=== PATIENT | female | born 1965 | race Caucasian/White ===

== ENCOUNTER 2017-07-04 10:27 | Outpatient (CLI) | payer OTHER ==
[2017-07-04 10:54] LABS: BASOPHILS % 0.5 (0.0-1.5); EOSINOPHILS % 2.9 % (0.0-6.8); MEAN CORPUSCULAR HEMOGLOBIN 30.7 pg (28.0-34.0); MONOCYTES % 3.7 % (0.0-11.0); NEUTROPHILS # 5.1 # k/uL (1.4-7.7)
[2017-07-04 11:37] LABS: eGFR (African) > 60; eGFR (Non-African) > 60
--- NOTE | 2017-07-04 13:13 | Diagnostic Imaging Report ---
MILENA NOLAN [facility] [address] [facility] [address] [place] [id number]. [id number] Report Submission Date: Jul 04, 2017 11:22:35 AM ENGINEERING SPECIALIST Patient Study Name: SARAHY BONILLA Date: Jul 04, 2017 10:48:06 AM ENGINEERING SPECIALIST Modality Type: CR Gender: F Description: ABDOMEN : 65 Institution: [facility] Physician: MILENA NOLAN Examination: KUB History: Abdominal discomfort Findings: 2 views obtained of the abdomen. No abnormal dilation of the large or small bowel. Air and stool throughout the large bowel. No suspicious calcifications projecting over the renal fossa or the lower pelvic region. Osseous structures are appropriate for age. Impression: No obstruction. No suspicious calcifications by plain film sensitivity. Electronically signed on Jul 04, 2017 11:22:35 AM ENGINEERING SPECIALIST by: Cuba ATKINS
== END 2017-07-04 10:30 ==
LOC: LAB 10:27
PROVIDERS: ATTEND Family Medicine
DX: R10.84 Generalized abdominal pain (principal); R53.83 Other fatigue
CPT/HCPCS: 36415; 74000; 80053; 84443; 85025

== ENCOUNTER 2017-07-07 07:44 | Outpatient (CLI) | payer OTHER ==
--- NOTE | 2017-07-07 10:50 | Diagnostic Imaging Report ---
MILENA NOLAN [facility] [address] [facility] [address] [place] [id number]. [id number] Report Submission Date: Jul 07, 2017 10:14:02 AM FLYING SHEAR OPERATOR Patient Study Name: SARAHY BONILLA Date: Jul 07, 2017 8:02:38 AM FLYING SHEAR OPERATOR Modality Type: US Gender: F Description: JUDI BAY : 65 Institution: [facility] Physician: MILENA NOLAN Examination: Ultrasound abdomen History: Abdominal discomfort Findings: Sonographic evaluation of the abdomen demonstrates a gallbladder without stones or sludge. Gallbladder wall measures 1.9 mm. Common bile duct measures 3.6 mm. No intrahepatic biliary dilation. Liver demonstrates normal homogeneous echogenicity. No mass. Normal flow on color analysis. Normal Doppler waveforms. Right kidney measures 10.3 cm in length. Left kidney measures 11.0 cm in length. Normal cortical margins. No hydronephrosis. Pancreatic region and abdominal aorta are without gross irregularity. 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 Impression: No gallstones or obstruction. Unremarkable abdominal ultrasound. Electronically signed on Jul 07, 2017 10:14:02 AM FLYING SHEAR OPERATOR by: Cuba ATKINS
== END 2017-07-07 09:54 ==
LOC: RAD 07:44
PROVIDERS: ATTEND Family Medicine
DX: R10.84 Generalized abdominal pain (principal)
CPT/HCPCS: 76700

== ENCOUNTER 2017-07-27 08:17 | Day surgery (SDC) | payer OTHER ==
[~2017-07-27 08:17] MED LIST: LACTATED RINGERS 1,000 ML IV.SOLN IV ONE; LIDOCAINE HCL/PF 2% 100 MG/5 ML VIAL IJ ONE; PROPOFOL 500 MG/50 ML VIAL IV ONE; SALINE FLUSH 10 ML DISP.SYRIN IVF ONE
--- NOTE | 2017-07-27 14:48 | Operative Note ---
SURGEON: Jerry Anguiano MD ANESTHESIA: MAC anesthesia. ESTIMATED BLOOD LOSS: None. COMPLICATIONS: None. PREOPERATIVE DIAGNOSIS: Screening colonoscopy. POSTOPERATIVE DIAGNOSIS: Normal colonoscopy. PROCEDURE PERFORMED: Colonoscopy to terminal ileum. INDICATIONS FOR THE PROCEDURE: This is a 52-year-old woman who presents for a screening colonoscopy. DESCRIPTION OF PROCEDURE: Patient was brought to the endoscopy suite and placed in the left lateral decubitus position. A rectal exam was performed which was normal. The colonoscope was inserted and passed easily to the cecum. The appendiceal orifice was identified. The prep was excellent. The terminal ileum was intubated and was normal. The colonoscope was retracted. There was a greater than 6-minute withdrawal time. There were no polyps or other lesions seen. The colonoscope was removed. The patient tolerated the procedure well. FINDINGS: Normal colonoscopy to terminal ileum. DISPOSITION: I recommend a repeat colonoscopy in 10 years. cc: Dr. Tammie ATKINS
== END 2017-07-27 08:20 ==
LOC: OPSURG 08:17
PROVIDERS: ATTEND Colon & Rectal Surgery
DX: Z12.11 Encounter for screening for malignant neoplasm of colon (principal); Z80.8 Family history of malignant neoplasm of other organs or systems
CPT/HCPCS: J2001; J2704; J7120; 45378; S1016

== ENCOUNTER 2017-10-20 10:07 | Outpatient (CLI) | payer OTHER | END 2017-10-20 10:10 | LOC: LABRHC 10:07 | PROVIDERS: ATTEND Family Medicine | DX: D22.9 Melanocytic nevi, unspecified (principal) ==

== ENCOUNTER 2018-09-10 15:36 | Outpatient (CLI) | payer OTHER ==
[2018-09-10 16:03] LABS: BASOPHILS % 0.8 (0.0-1.5); EOSINOPHILS % 2.8 % (0.0-6.8); MEAN CORPUSCULAR HEMOGLOBIN 30.1 pg (28.0-34.0); MONOCYTES % 3.9 % (0.0-11.0); NEUTROPHILS # 8.3 # k/uL (1.4-7.7)
== END 2018-09-10 15:38 ==
LOC: LAB 15:36
PROVIDERS: ATTEND Podiatrist Foot Surgery
DX: Z01.812 Encounter for preprocedural laboratory examination (principal); Z01.810 Encounter for preprocedural cardiovascular examination; M79.672 Pain in left foot; M72.2 Plantar fascial fibromatosis
CPT/HCPCS: 36415; 85025

== ENCOUNTER 2018-09-12 14:50 | Outpatient (CLI) | payer OTHER ==
[2018-09-12 15:15] LABS: MEAN CORPUSCULAR HEMOGLOBIN 30.5 pg (28.0-34.0)
== END 2018-09-12 14:53 ==
LOC: LAB 14:50
PROVIDERS: ATTEND Family Medicine
DX: D72.829 Elevated white blood cell count, unspecified (principal)
CPT/HCPCS: 36415; 85027

== ENCOUNTER 2019-05-08 16:46 | Outpatient (CLI) | payer OTHER | END 2019-05-08 16:48 | LOC: LABRHC 16:46 | PROVIDERS: ATTEND Family Medicine | DX: R31.9 Hematuria, unspecified (principal) | CPT/HCPCS: 87086 ==